=== PATIENT | male | born 1960 | race African-American/Black ===

== ENCOUNTER 2021-04-21 13:50 | Inpatient (IN) | payer BC ==
[~2021-04-21] VITALS: Ht 188 cm; Wt 152.1 kg
[2021-04-21] VITALS (11 sets, daily range): BP systolic 107–168; BP diastolic 69–127
[2021-04-21] MEDS: HEPARIN 25,000 UNIT 1,500 UNIT in DEXTROSE 5% 250ML 250 ML IV SCH (15:45)
[2021-04-21 15:58] LABS: BASOPHILS % 0.4 % (0.0-1.0); EOSINOPHILS # (AUTO) 0.2 (0.0-0.4); EOSINOPHILS % 2.8 % (0.0-6.0); HEMATOCRIT 35.6 % (38.2-49.6); HEMOGLOBIN 11.3 g/dL (14.0-18.0); LYMPHOCYTES # (AUTO) 2.5 (1.0-3.2); LYMPHOCYTES % 32.6 % (18.0-39.1); MEAN CORPUSCULAR HEMOGLOBIN 26.8 pg (28-32); MEAN CORPUSCULAR HGB CONC 31.7 g/dL (31-35); MEAN CORPUSCULAR VOLUME 84.6 fL (81-99); MONOCYTES # (AUTO) 0.4 (0.2-0.8); MONOCYTES % 5.6 % (4.4-11.3); NEUTROPHILS # (AUTO) 4.5 (2.1-6.9); NEUTROPHILS % 58.3 % (38.7-80.0); PLATELET COUNT 303 x10e3/uL (140-360); RED BLOOD COUNT 4.21 x10e6/uL (4.3-5.7)
[2021-04-21] MEDS: SODIUM CHLORIDE 0.9% 1000ML 1,000 ML IV SCH (16:00)
[2021-04-21] MEDS ORDERED: HEPARIN 25,000 UNIT DRIP IV ONE (16:07)
[2021-04-21 16:11] LABS: INR 1.07; PROTHROMBIN TIME 14.9 seconds (11.9-14.5)
[2021-04-21 16:12] LABS: PARTIAL THROMBOPLASTIN TIME 32.1 seconds (23.8-35.5)
[2021-04-21] MEDS: Morphine 4mg Syringe 4 MG/ML INJ IV PRN ×2 (16:12→19:59)
[2021-04-21] MEDS: ONDANSETRON HCL INJ 2MG/ML 2ML 2 MG/ML VIAL IV PRN ×2 (16:12→19:59)
[2021-04-21] MEDS ORDERED: MIDAZOLAM HCL 2 MG/2 ML VIAL ONE (16:14)
[2021-04-21] MEDS ORDERED: HEPARIN SOD/SOD CHLORIDE 2,000 ML ONE (16:14)
[2021-04-21] MEDS ORDERED: FENTANYL CITRATE/PF 100MCG/2 ML INJ ONE (16:14)
[2021-04-21] MEDS ORDERED: SODIUM CHLORIDE 0.9% 1000ML 1,000 ML ONE (16:14)
[2021-04-21] MEDS ORDERED: IOPAMIDOL 300MG/ML 100 ML INFUS..BTL IV ONE (16:14)
[2021-04-21] MEDS ORDERED: LIDOCAINE HCL 2% LOCAL 20 ML VIAL ONE (16:14)
[2021-04-21 16:17] LABS: ALBUMIN 3.6 g/dL (3.5-5.0); ALBUMIN/GLOBULIN RATIO 0.9 (0.8-2.0); ANION GAP 14.6 mmol/L (8-16); CALCIUM 9.6 mg/dL (8.4-10.2); CREATININE, SERUM 1.22 mg/dL (0.72-1.25); POTASSIUM 3.6 mmol/L (3.5-5.1)
[2021-04-21 18:18] LABS: EOSINOPHILS % (MANUAL) 1 % (0-7); LYMPHOCYTES % (MANUAL) 24 % (19-48); MONOCYTES % (MANUAL) 8 % (3.4-9.0); NEUTROPHILS % (MANUAL) 61 % (40-74)
[2021-04-21 18:19] LABS: ELLIPTOCYTE, RBC MODERATE; PLATELET ESTIMATE ADEQUATE; PLATELET MORPHOLOGY COMMENT NORMAL; POIKILOCYTOSIS SLIGHT; RBC MORPHOLOGY COMMENT ABNORMAL
[2021-04-22] VITALS (16 sets, daily range): BP systolic 111–142; BP diastolic 61–92
[2021-04-22] MEDS: ONDANSETRON HCL INJ 2MG/ML 2ML 2 MG/ML VIAL IV PRN ×4 (00:06→10:37)
[2021-04-22] MEDS: Morphine 4mg Syringe 4 MG/ML INJ IV PRN ×3 (00:06→07:51)
[2021-04-22] MEDS ORDERED: ELIQUIS2.5 MG PO (00:07)
[2021-04-22] MEDS: SODIUM CHLORIDE 0.9% 1000ML 1,000 ML IV SCH ×2 (00:09→07:51)
[2021-04-22 05:01] LABS: BASOPHILS % 0.4 % (0.0-1.0); EOSINOPHILS # (AUTO) 0.3 (0.0-0.4); EOSINOPHILS % 3.6 % (0.0-6.0); HEMATOCRIT 34.2 % (38.2-49.6); LYMPHOCYTES # (AUTO) 2.5 (1.0-3.2); LYMPHOCYTES % 34.6 % (18.0-39.1); MEAN CORPUSCULAR HEMOGLOBIN 27.2 pg (28-32); MEAN CORPUSCULAR HGB CONC 32.2 g/dL (31-35); MEAN CORPUSCULAR VOLUME 84.7 fL (81-99); MONOCYTES # (AUTO) 0.5 (0.2-0.8); MONOCYTES % 6.5 % (4.4-11.3); NEUTROPHILS # (AUTO) 3.9 (2.1-6.9); NEUTROPHILS % 54.6 % (38.7-80.0); PLATELET COUNT 216 x10e3/uL (140-360); RED BLOOD COUNT 4.04 x10e6/uL (4.3-5.7); RED CELL DISTRIBUTION WIDTH 17.6 % (11.7-14.4)
[2021-04-22 05:18] LABS: ANION GAP 12.8 mmol/L (8-16); CALCIUM 9.4 mg/dL (8.4-10.2); CREATININE, SERUM 1.13 mg/dL (0.72-1.25); POTASSIUM 3.8 mmol/L (3.5-5.1)
[2021-04-22 09:02] LABS: EOSINOPHILS % (MANUAL) 4 % (0-7); LYMPHOCYTES % (MANUAL) 39 % (19-48); MONOCYTES % (MANUAL) 5 % (3.4-9.0); NEUTROPHILS % (MANUAL) 48 % (40-74)
[2021-04-22 09:03] LABS: PLATELET ESTIMATE ADEQUATE; PLATELET MORPHOLOGY COMMENT NORMAL; RBC MORPHOLOGY COMMENT NORMAL
[2021-04-22] MEDS: HEPARIN 25,000 UNIT 1,500 UNIT in DEXTROSE 5% 250ML 250 ML IV SCH (10:10)
[2021-04-22] MEDS ORDERED: Morphine 4mg Syringe 4 MG/ML INJ IV PRN (10:15)
== END 2021-04-22 14:43 | disposition short-term general hospital (02) | DRG 254 ==
LOC: ER 14:25 → ERHOLD 15:56 → ICU 19:25
PROVIDERS: ADMIT Internal Medicine; ATTEND Internal Medicine
PROC: 047L3ZZ Dilation of Left Femoral Artery, Percutaneous Approach (ICD-10-PCS; principal; 2021-04-21)
PROC: B41D1ZZ Fluoroscopy of Aorta and Bilateral Lower Extremity Arteries using Low Osmolar Contrast (ICD-10-PCS; 2021-04-21)
DX: T82.858A Stenosis of other vascular prosthetic devices, implants and grafts, initial encounter (principal); I73.9 Peripheral vascular disease, unspecified; E78.5 Hyperlipidemia, unspecified; I10 Essential (primary) hypertension; Z86.718 Personal history of other venous thrombosis and embolism; Z79.01 Long term (current) use of anticoagulants; Z87.891 Personal history of nicotine dependence; K21.9 Gastro-esophageal reflux disease without esophagitis; Z86.711 Personal history of pulmonary embolism; Z20.822 Contact with and (suspected) exposure to COVID-19
CPT/HCPCS: 36415; 71045; 75625; 80048; 80053; 85025; 85347; 85610; 85730; 93925; 94799; 99152; 99153; 99284; C1766; C1769; C1894; J2001; J2250; J2270; J2405; J3010; J7030; Q9967; U0002

== ENCOUNTER 2024-01-20 20:44 | Inpatient (IN) | payer BC, MEDICARE ==
[~2024-01-20] VITALS: Ht 188 cm; Wt 152.0 kg
[~2024-01-20 20:44] MED LIST: ELIQUIS2.5 MG PO
[2024-01-20 21:31] VITALS: PULSE 81; RESP 20; TEMP 98.4
[2024-01-20 21:57] LABS: BASOPHILS % 0.3 % (0.0-1.0); EOSINOPHILS # (AUTO) 0.3 (0.0-0.4); EOSINOPHILS % 2.6 % (0.0-6.0); HEMATOCRIT 35.7 % (38.2-49.6); LYMPHOCYTES # (AUTO) 2.5 (1.0-3.2); LYMPHOCYTES % 21.1 % (18.0-39.1); MEAN CORPUSCULAR HEMOGLOBIN 27.8 pg (28-32); MEAN CORPUSCULAR HGB CONC 30.8 g/dL (31-35); MEAN CORPUSCULAR VOLUME 90.2 fL (81-99); MONOCYTES # (AUTO) 0.6 (0.2-0.8); MONOCYTES % 4.9 % (4.4-11.3); NEUTROPHILS # (AUTO) 8.3 (2.1-6.9); NEUTROPHILS % 70.8 % (38.7-80.0); PLATELET COUNT 262 x10e3/uL (140-360); RED BLOOD COUNT 3.96 x10e6/uL (4.3-5.7); RED CELL DISTRIBUTION WIDTH 16.4 % (11.7-14.4); WHITE BLOOD COUNT 11.73 x10e3/uL (4.8-10.8)
[2024-01-20 22:11] LABS: ALBUMIN 3.6 g/dL (3.5-5.0); ANION GAP 14.6 mmol/L (8-16); BILIRUBIN,TOTAL 0.6 mg/dL (0.2-1.2); CALCIUM 8.9 mg/dL (8.4-10.2); CREATININE, SERUM 0.8 mg/dL (0.72-1.25); POTASSIUM 3.6 mmol/L (3.5-5.1); TOTAL PROTEIN 7.1 g/dL (6.5-8.1)
[2024-01-20] MEDS: ONDANSETRON HCL INJ 2MG/ML 2ML 2 MG/ML VIAL IV STA (22:37)
[2024-01-20] MEDS: Morphine 4mg INJECTION 4 MG/ML INJ IV STA (22:37)
[2024-01-20 23:04] LABS: BILIRUBIN,URINE NEGATIVE (NEGATIVE); CLARITY,URINE CLEAR (CLEAR); COLOR,URINE YELLOW (YELLOW); GLUCOSE, URINE NEGATIVE (NEGATIVE); KETONES,URINE NEGATIVE (NEGATIVE); LEUKOCYTE ESTERASE ,URINE NEGATIVE (NEGATIVE); NITRITE,URINE NEGATIVE (NEGATIVE); PH,URINE 6 (5 - 7); PROTEIN,URINE DIPSTICK >=300 (NEGATIVE); URINE UROBILINOGEN 1 mg/dL (0.2 - 1)
[2024-01-20 23:06] LABS: BACTERIA,URINE FEW /HPF; EPITHELIAL CELLS,URINE FEW /LPF; MUCUS,URINE MANY (RARE); RBC,URINE 0-5 /HPF (0-5); WBC,URINE (MAN) 0-5 /HPF (0-5)
[2024-01-20] MEDS ORDERED: IOPAMIDOL 370 MG/ML 100 ML INFUS..BTL INJ ONE (23:56)
[2024-01-21] VITALS (8 sets, daily range): BP systolic 120–159; BP diastolic 57–98; PULSE 65–87; RESP 18–20; TEMP 97.9–98.5; O2SAT 98–100
[2024-01-21] MEDS ORDERED: GABAPENTIN 300 MG CAP PO SCH (01:45)
[2024-01-21] MEDS: BENZOCAINE 20% SPR 60 ML CAN MT ONE (02:14)
[2024-01-21] MEDS: ONDANSETRON HCL INJ 2MG/ML 2ML 2 MG/ML VIAL IV PRN (03:02)
[2024-01-21] MEDS: Morphine 2mg Syringe 2 MG/ML SYR IV PRN (03:02)
[2024-01-21] MEDS: SODIUM CHLORIDE 0.9% 1000ML 1,000 ML IV SCH (03:59)
[2024-01-21] MEDS ORDERED: CARVEDILOL3.125 MG PO (04:41)
[2024-01-21] MEDS ORDERED: FLONASE ALLERG9.9 ML INH (04:41)
[2024-01-21] MEDS ORDERED: OMEPRAZOLE40 MG PO (04:41)
[2024-01-21] MEDS ORDERED: MOUNJARO7.5 MG/0.5 (04:41)
[2024-01-21] MEDS ORDERED: SEMGLEE (Y100 UNIT/2 SQ (04:41)
[2024-01-21] MEDS ORDERED: METFORMIN HCL500 MG PO (04:41)
[2024-01-21] MEDS ORDERED: NIFEDIPINE ER90 MG PO (04:41)
[2024-01-21] MEDS ORDERED: CLENPIQ PO (04:41)
[2024-01-21] MEDS ORDERED: ELIQUIS5 MG PO (04:41)
[2024-01-21] MEDS ORDERED: FLUOCINOLONE AC20 ML EACH EAR (04:41)
[2024-01-21] MEDS ORDERED: BISMUTH262 MG PO (04:41)
[2024-01-21] MEDS ORDERED: ATORVASTATIN CA20 MG PO (04:41)
[2024-01-21] MEDS ORDERED: HUMALOG100 UNIT/1 SQ (04:41)
[2024-01-21] MEDS ORDERED: ASPIRIN81 MG PO (04:41)
[2024-01-21] MEDS ORDERED: MYCOBUTIN150 MG PO (04:41)
[2024-01-21] MEDS ORDERED: GABAPENTIN300 MG PO (04:41)
[2024-01-21] MEDS ORDERED: LOSARTAN POTAS100 MG PO (04:41)
[2024-01-21 07:16] LABS: TROPONIN I 0.114 ng/mL (0-0.300)
[2024-01-21 08:04] LABS: TROPONIN I 0.01 ng/mL (0-0.300)
[2024-01-21] MEDS ORDERED: HYDRALAZINE HCL 20 MG/ML VIAL IV PRN (10:30)
[2024-01-21] MEDS ORDERED: ACETAMINOPHEN 325 MG TAB PO PRN (10:30)
[2024-01-21 15:59] LABS: TROPONIN I 0.012 ng/mL (0-0.300)
[2024-01-21] MEDS: MAGNESIUM HYDROXIDE 30 ML UDC PO ONE (18:45)
[2024-01-21] MEDS: BISACODYL 10 MG SUPP PR SCH (20:54)
[2024-01-22 03:20] VITALS: BP 141/80; PULSE 73; RESP 18; TEMP 98.2; O2SAT 100
[2024-01-22 06:10] LABS: BASOPHILS % 0.3 % (0.0-1.0); EOSINOPHILS # (AUTO) 0.4 (0.0-0.4); EOSINOPHILS % 3.9 % (0.0-6.0); HEMATOCRIT 30.3 % (38.2-49.6); LYMPHOCYTES # (AUTO) 2.3 (1.0-3.2); LYMPHOCYTES % 24.6 % (18.0-39.1); MEAN CORPUSCULAR HEMOGLOBIN 26.3 pg (28-32); MEAN CORPUSCULAR HGB CONC 30.7 g/dL (31-35); MEAN CORPUSCULAR VOLUME 85.6 fL (81-99); MONOCYTES # (AUTO) 0.4 (0.2-0.8); MONOCYTES % 4.4 % (4.4-11.3); NEUTROPHILS # (AUTO) 6.1 (2.1-6.9); NEUTROPHILS % 66.5 % (38.7-80.0); PLATELET COUNT 215 x10e3/uL (140-360); RED BLOOD COUNT 3.54 x10e6/uL (4.3-5.7); WHITE BLOOD COUNT 9.17 x10e3/uL (4.8-10.8)
[2024-01-22 06:19] LABS: HEMOGLOBIN 9.3 g/dL (14.0-18.0)
[2024-01-22 06:30] LABS: ALBUMIN/GLOBULIN RATIO 0.9 (0.8-2.0); ANION GAP 13.6 mmol/L (8-16); BILIRUBIN,TOTAL 0.5 mg/dL (0.2-1.2); CALCIUM 8.5 mg/dL (8.4-10.2); CREATININE, SERUM 0.87 mg/dL (0.72-1.25); POTASSIUM 3.6 mmol/L (3.5-5.1); TOTAL PROTEIN 6.3 g/dL (6.5-8.1)
[2024-01-22 07:59] VITALS: BP 152/72; PULSE 65; RESP 17; TEMP 98.1; O2SAT 100
[2024-01-22 08:07] VITALS: BP 152/72; PULSE 65; RESP 17; TEMP 98.1; O2SAT 100
[2024-01-22] MEDS: CARVEDILOL 3.125 MG TAB PO SCH (08:50)
[2024-01-22 12:00] VITALS: BP 152/70; PULSE 61; RESP 17; TEMP 97.9; O2SAT 99
[2024-01-22] MEDS: MAGNESIUM HYDROXIDE 30 ML UDC PO ONE (12:29)
[2024-01-22] MEDS: LOSARTAN POTASSIUM 100 MG TAB PO SCH (12:31)
[2024-01-22 16:49] VITALS: BP 178/79; PULSE 65; RESP 18; TEMP 98.2; O2SAT 100
[2024-01-22] MEDS ORDERED: BISMUTH SUBSALICYLATE 262 MG TAB PO SCH (17:00)
[2024-01-22] MEDS ORDERED: ATORVASTATIN 40 MG TAB PO SCH (21:00)
[2024-01-23] MEDS ORDERED: PANTOPRAZOLE SOD 40 MG TABEC PO SCH (07:30)
== END 2024-01-22 18:00 | disposition left against medical advice (07) | DRG 394 ==
LOC: ER 20:50 → ERHOLD 01-21 01:23 → MED/SURG3 01-21 03:25
PROVIDERS: ADMIT Internal Medicine; ATTEND Internal Medicine
PROC: 0D9670Z Drainage of Stomach with Drainage Device, Via Natural or Artificial Opening (ICD-10-PCS; principal; 2024-01-21)
DX: K42.0 Umbilical hernia with obstruction, without gangrene (principal); Z68.41 Body mass index [BMI] 40.0-44.9, adult; Z53.29 Procedure and treatment not carried out because of patient's decision for other reasons; I10 Essential (primary) hypertension; E78.00 Pure hypercholesterolemia, unspecified; E66.01 Morbid (severe) obesity due to excess calories; K21.9 Gastro-esophageal reflux disease without esophagitis; I73.9 Peripheral vascular disease, unspecified; Z89.612 Acquired absence of left leg above knee; Z89.611 Acquired absence of right leg above knee; Z87.891 Personal history of nicotine dependence; Z71.81 Spiritual or religious counseling; Z86.711 Personal history of pulmonary embolism; Z86.718 Personal history of other venous thrombosis and embolism; Z79.01 Long term (current) use of anticoagulants; Z79.82 Long term (current) use of aspirin; Z79.899 Other long term (current) drug therapy
CPT/HCPCS: 36415; 74018; 74177; 80053; 81001; 82550; 82948; 84484; 85025; 99252; 99284; J2270; J2405; J2470; J2543; J7030; Q9967